=== PATIENT | female | born 1970 | race Caucasian/White ===

== ENCOUNTER 2023-05-28 17:40 | Inpatient (IN) | payer MEDICAID, OTHER ==
[~2023-05-28] VITALS: Ht 167.6 cm; Wt 106.0 kg
[2023-05-28 18:23] LABS: Urine Bacteria FEW /hpf (None Seen); Urine Blood Negative /uL (Negative); Urine Clarity Clear (Clear); Urine Color Yellow (Yellow); Urine Mucus FEW (None Seen); Urine Protein, UAD 1+ (Negative); Urine Specific Gravity 1.033 (1.001-1.035); Urine WBC 4 /hpf (0 - 5); Urine pH 5.5 (5.0-8.0)
[2023-05-28 18:42] LABS: Basophils # (auto) 0.1 10 ^3/uL (0-0.2); Basophils % (auto) 0.3 % (0.0-2.0); Eosinophils # (auto) 0.1 10 ^3/uL (0-0.8); Eosinophils % (auto) 0.3 % (0.0-7.0); Hematocrit 42.5 % (36.0-46.0); Hemoglobin 13.9 g/dL (12.2-16.2); Lymphocytes % (auto) 10.8 % (10.0-50.0); Mean Corpuscular Hemoglobin 27.4 pg (28.0-32.0); Mean Corpuscular Hgb Conc. 32.7 g/dL (32.0-36.0); Mean Corpuscular Volume 83.9 fL (80.0-100.0); Monocytes # (auto) 1.2 10 ^3/uL (0-1.3); Monocytes % (auto) 6.7 % (0.0-12.0); Neutrophils % (auto) 81.9 % (37.0-80.0); Red Blood Cells 5.06 10^6/uL (4.0-5.20); Red Cell Distribution Width 13.8 % (11.8-14.3); White Blood Cell 18.3 10^3/uL (4.4-10.8)
[2023-05-28 18:56] LABS: Amphetamine Screen, Urine Neg (NEGATIVE); Barbiturate Scree,Urine Neg (NEGATIVE); Benzodiazephine Screen, Urine Neg (NEGATIVE); Cannabinoid Screen, Urine Neg (NEGATIVE); Cocaine Screen, Urine Neg (NEGATIVE); Opiate Scree,Urine Neg (NEGATIVE); Phencyclidine Screen, Urine Neg (NEGATIVE)
[2023-05-28 18:58] LABS: Alanine Aminotransferase 17 U/L (7-40); Albumin 4.5 g/dL (3.2-4.8); Alkaline Phosphatase 163 U/L (46-116); Anion Gap 14 (5-15); Aspartate Aminotransferase < 8 U/L (13-40); BUN/Creatinine Ratio 11.5 (10.0-20.0); Bilirubin, Total 0.6 mg/dL (0.2-1.0); Blood Urea Nitrogen 11 mg/dL (9-23); Calcium 9.3 mg/dL (8.7-10.4); Carbon Dioxide 18 mmol/L (20-30); Chloride 97 mmol/L (98-107); Glucose 320 mg/dL (74-106); Sodium 129 mmol/L (136-145)
[2023-05-28 18:59] LABS: Total Protein 7.6 g/dL (5.7-8.2)
[2023-05-28 19:03] LABS: INR 1.04 (0.9-1.15); Partial Thromboplastin Time 31.4 SEC (24.5-34.5); Prothrombin Time 10.9 sec (9.3-11.8)
[2023-05-28] MEDS ORDERED: ASPirin 325 MG TAB PO ONE (19:15)
[2023-05-28] MEDS ORDERED: ONDANSETRON ODT 4 MG TAB PO ONE (19:45)
[2023-05-28] MEDS ORDERED: traMADol HCL 50 MG TAB PO ONE (19:45)
[2023-05-28 19:57] VITALS: PULSE 123; RESP 20; O2SAT 96
[2023-05-28] MEDS ORDERED: SODIUM CHLORIDE 0.9% 1,000 ML IV ONE (20:00)
[2023-05-28] MEDS ORDERED: IOHEXOL 350 MG/ML 100ML IJ ONE (20:36)
[2023-05-28] MEDS ORDERED: PIPERACILLIN-TAZOB 3.375GM 100 ML IV ONE (20:45)
[2023-05-28 21:30] VITALS: PULSE 109; RESP 22; O2SAT 95
[2023-05-28] MEDS ORDERED: ONDANSETRON HCL 4 MG/2 ML VIAL IV PRN (21:30)
[2023-05-28] MEDS ORDERED: DOCUSATE SOD 100 MG CAP PO PRN (21:30)
[2023-05-28] MEDS ORDERED: DEXTROSE (50%) 50ML SYRG IV PRN (21:30)
[2023-05-28] MEDS ORDERED: NITROGLYCERIN 0.4 MG SL TAB SL PRN (22:45)
[2023-05-28] MEDS ORDERED: MORPHINE SULFATE INJ 2 MG/ml SYRG IV PRN (22:45)
[2023-05-28] MEDS: ACETAMINOPHEN 325 MG TAB PO PRN (23:12)
[2023-05-28] MEDS: FAMOTIDINE (10MG/ML) 2ML VL IV SCH (23:13)
[2023-05-28] MEDS: SODIUM CHLORIDE 0.9% 1,000 ML IV SCH (23:14)
[2023-05-28] MEDS: ACCU-CHEK COMFORT CURVE STRIP VI SCH (23:14)
[2023-05-28] MEDS: InsuLIN REG 1unit/0.01ml Soln (100units/ml) SC SCH (23:16)
[2023-05-28] MEDS: METOPROLOL TARTRATE 25 MG TAB PO SCH (23:17)
[2023-05-29] MEDS: diphenhdrAMINE HCL 50 MG/1 ML VL IV PRN (00:27)
[2023-05-29 05:25] LABS: Basophils # (auto) 0.1 10 ^3/uL (0-0.2); Basophils % (auto) 0.5 % (0.0-2.0); Eosinophils # (auto) 0.1 10 ^3/uL (0-0.8); Eosinophils % (auto) 0.6 % (0.0-7.0); Hematocrit 38.4 % (36.0-46.0); Hemoglobin 12.6 g/dL (12.2-16.2); Lymphocytes % (auto) 14.2 % (10.0-50.0); Mean Corpuscular Hemoglobin 27.4 pg (28.0-32.0); Mean Corpuscular Hgb Conc. 32.8 g/dL (32.0-36.0); Mean Corpuscular Volume 83.5 fL (80.0-100.0); Monocytes # (auto) 1.1 10 ^3/uL (0-1.3); Monocytes % (auto) 7.9 % (0.0-12.0); Neutrophils # (auto) 10.9 10 ^3/uL (1.6-8.6); Neutrophils % (auto) 76.8 % (37.0-80.0); Nucleated Red Blood Cells % 0.1 %; Red Cell Distribution Width 13.7 % (11.8-14.3); White Blood Cell 14.2 10^3/uL (4.4-10.8)
[2023-05-29 05:44] LABS: Alanine Aminotransferase 12 U/L (7-40); Albumin 4.2 g/dL (3.2-4.8); Alkaline Phosphatase 141 U/L (46-116); Anion Gap 11 (5-15); Aspartate Aminotransferase < 8 U/L (13-40); BUN/Creatinine Ratio 10.8 (10.0-20.0); Blood Urea Nitrogen 9 mg/dL (9-23); Calcium 9.2 mg/dL (8.7-10.4); Carbon Dioxide 19 mmol/L (20-30); Chloride 102 mmol/L (98-107); Glucose 239 mg/dL (74-106); Potassium 3.9 mmol/L (3.5-5.1); Sodium 132 mmol/L (136-145)
[2023-05-29 05:45] LABS: Bilirubin, Total 0.5 mg/dL (0.2-1.0); Total Protein 7.4 g/dL (5.7-8.2)
[2023-05-29] MEDS: PIPERACILLIN-TAZOB 3.375GM 100 ML IV SCH ×3 (06:17→21:51)
[2023-05-29] MEDS: ACCU-CHEK COMFORT CURVE STRIP VI SCH ×4 (06:27→21:51)
[2023-05-29] MEDS: InsuLIN REG 1unit/0.01ml Soln (100units/ml) SC SCH ×4 (06:31→22:03)
[2023-05-29 08:09] LABS: COVID19 ANTIGEN SOFIA FIA NEGATIVE (NEGATIVE)
[2023-05-29 09:00] VITALS: BP_SYST 151; BP_SYST 180; BP_DIAS 59; BP_DIAS 72; PULSE 70; PULSE 94; RESP 16; TEMP 97.9; TEMP 98.6; O2SAT 97; O2SAT 99
[2023-05-29] MEDS: ASPirin 81 mg TAB PO SCH (09:04)
[2023-05-29] MEDS: FAMOTIDINE (10MG/ML) 2ML VL IV SCH ×2 (09:04→21:51)
[2023-05-29] MEDS: traMADol HCL 50 MG TAB PO PRN ×2 (09:05→15:58)
[2023-05-29] MEDS: METOPROLOL TARTRATE 25 MG TAB PO SCH ×2 (09:06→22:00)
[2023-05-29] MEDS ORDERED: GLIP10TA9 PO (09:10)
[2023-05-29] MEDS ORDERED: ALPR0.254 PO (09:12)
[2023-05-29] MEDS ORDERED: METO25TA5 PO (09:12)
[2023-05-29] MEDS ORDERED: ESCI10TA PO (09:12)
[2023-05-29 12:42] VITALS: BP 151/72; PULSE 94; TEMP 37
[2023-05-29 13:00] VITALS: BP 119/56; PULSE 93; RESP 20; TEMP 98.7; O2SAT 95
[2023-05-29] MEDS: SODIUM CHLORIDE 0.9% 1,000 ML IV SCH (13:54)
[2023-05-29] MEDS ORDERED: MORPHINE SULFATE INJ 2 MG/ml SYRG IV PRN (16:15)
[2023-05-29 17:00] VITALS: BP 144/77; PULSE 104; RESP 19; TEMP 98.4; O2SAT 95
[2023-05-29 20:00] VITALS: BP 155/87; PULSE 117; PULSE 119; RESP 18; TEMP 98.4; O2SAT 99
[2023-05-29 22:00] VITALS: BP 155/87; PULSE 119; RESP 18; TEMP 98.4; O2SAT 98
[2023-05-30] VITALS (8 sets, daily range): BP systolic 125–142; BP diastolic 61–86; PULSE 95–127; RESP 14–21; TEMP 97.5–98.9; O2SAT 94–98
[2023-05-30] MEDS: PIPERACILLIN-TAZOB 3.375GM 100 ML IV SCH ×3 (05:43→23:10)
[2023-05-30] MEDS: SODIUM CHLORIDE 0.9% 1,000 ML IV SCH ×2 (05:45→23:27)
[2023-05-30] MEDS: ACCU-CHEK COMFORT CURVE STRIP VI SCH ×4 (05:45→23:10)
[2023-05-30] MEDS: ACETAMINOPHEN 325 MG TAB PO PRN (05:54)
[2023-05-30] MEDS: InsuLIN REG 1unit/0.01ml Soln (100units/ml) SC SCH ×4 (05:59→23:14)
[2023-05-30] MEDS: ASPirin 81 mg TAB PO SCH (09:32)
[2023-05-30] MEDS: FAMOTIDINE (10MG/ML) 2ML VL IV SCH ×2 (09:33→23:04)
[2023-05-30] MEDS: METOPROLOL TARTRATE 25 MG TAB PO SCH ×2 (09:33→23:07)
[2023-05-30] MEDS: traMADol HCL 50 MG TAB PO PRN ×2 (16:05→20:56)
[2023-05-30] MEDS: diphenhdrAMINE HCL 50 MG/1 ML VL IV PRN (23:13)
[2023-05-31] VITALS (8 sets, daily range): BP systolic 101–140; BP diastolic 58–69; PULSE 60–112; RESP 14–21; TEMP 98.3–100.1; O2SAT 93–96
[2023-05-31] MEDS: PIPERACILLIN-TAZOB 3.375GM 100 ML IV SCH (05:26)
[2023-05-31] MEDS: traMADol HCL 50 MG TAB PO PRN (05:30)
[2023-05-31] MEDS: ACCU-CHEK COMFORT CURVE STRIP VI SCH ×4 (06:24→22:33)
[2023-05-31] MEDS: ACETAMINOPHEN 325 MG TAB PO PRN (06:47)
[2023-05-31] MEDS: InsuLIN REG 1unit/0.01ml Soln (100units/ml) SC SCH ×4 (06:47→22:58)
[2023-05-31] MEDS: FAMOTIDINE (10MG/ML) 2ML VL IV SCH (10:30)
[2023-05-31] MEDS: ASPirin 81 mg TAB PO SCH (10:30)
[2023-05-31] MEDS: METOPROLOL TARTRATE 25 MG TAB PO SCH ×2 (10:30→22:33)
[2023-05-31 11:20] LABS: Basophils # (auto) 0.1 10 ^3/uL (0-0.2); Basophils % (auto) 0.7 % (0.0-2.0); Eosinophils # (auto) 0.1 10 ^3/uL (0-0.8); Hematocrit 35.7 % (36.0-46.0); Hemoglobin 11.9 g/dL (12.2-16.2); Lymphocytes # (auto) 1.6 10 ^3/uL (0.4-5.4); Lymphocytes % (auto) 10.8 % (10.0-50.0); Mean Corpuscular Hemoglobin 27.5 pg (28.0-32.0); Mean Corpuscular Hgb Conc. 33.3 g/dL (32.0-36.0); Mean Corpuscular Volume 82.5 fL (80.0-100.0); Monocytes # (auto) 1.2 10 ^3/uL (0-1.3); Monocytes % (auto) 8.3 % (0.0-12.0); Neutrophils # (auto) 11.5 10 ^3/uL (1.6-8.6); Neutrophils % (auto) 79.2 % (37.0-80.0); Red Blood Cells 4.32 10^6/uL (4.0-5.20); Red Cell Distribution Width 13.2 % (11.8-14.3); White Blood Cell 14.5 10^3/uL (4.4-10.8)
[2023-05-31 11:43] LABS: Alanine Aminotransferase 13 U/L (7-40); Albumin 3.8 g/dL (3.2-4.8); Alkaline Phosphatase 141 U/L (46-116); Anion Gap 7 (5-15); Aspartate Aminotransferase 10 U/L (13-40); Blood Urea Nitrogen 6 mg/dL (9-23); Calcium 8.9 mg/dL (8.7-10.4); Carbon Dioxide 24 mmol/L (20-30); Chloride 99 mmol/L (98-107); Glucose 304 mg/dL (74-106); Potassium 3.3 mmol/L (3.5-5.1); Sodium 130 mmol/L (136-145)
[2023-05-31 11:44] LABS: Bilirubin, Total 0.4 mg/dL (0.2-1.0); Total Protein 6.9 g/dL (5.7-8.2)
[2023-05-31 11:53] LABS: Erythrocyte Sedimentation Rate 86 mm/hr (0-20)
[2023-05-31 12:51] LABS: CRP High Sensitivity > 20.00 mg/dL (<1.0)
[2023-05-31] MEDS ORDERED: POTASSIUM CHL 20 Meq TABLET PO ONE (14:00)
[2023-05-31] MEDS ORDERED: ENOXAPARIN SOD 40 MG/0.4 ML SYRINGE SC ONE (14:00)
[2023-05-31] MEDS ORDERED: DOXYCYCLINE 100 MG TAB/CAP PO ONE (14:00)
[2023-05-31] MEDS ORDERED: VANCOMYCIN PER PHARMACY 0 MG IV SCH (14:15)
[2023-05-31] MEDS ORDERED: VANCOMYCIN 1GM/200ML 250 ML IV SCH (16:00)
[2023-05-31] MEDS: HYDROcodone-ACET 10/325MG TAB PO PRN ×2 (16:20→22:30)
[2023-05-31] MEDS: VANCOMYCIN 1GM/200ML 250 ML IV SCH (16:22)
[2023-05-31] MEDS: NYSTATIN TOPICAL POWDER 15GM TOP SCH (22:00)
[2023-05-31] MEDS ORDERED: INSULIN LANTUS (GLARGINE) 1 /0.01ml (100units/ml) SC SCH (22:00)
[2023-05-31] MEDS: DOXYCYCLINE 100 MG TAB/CAP PO SCH (22:30)
[2023-05-31] MEDS: CEFEPIME 2GM/50ML NS 50 ML IV SCH (22:32)
[2023-06-01] VITALS (9 sets, daily range): BP systolic 109–138; BP diastolic 61–75; PULSE 83–102; RESP 14–19; TEMP 97.7–98.6; O2SAT 92–100
[2023-06-01] MEDS: VANCOMYCIN 1GM/200ML 250 ML IV SCH ×2 (03:28→17:54)
[2023-06-01] MEDS: CEFEPIME 2GM/50ML NS 50 ML IV SCH (06:54)
[2023-06-01] MEDS: ACCU-CHEK COMFORT CURVE STRIP VI SCH ×4 (06:54→22:00)
[2023-06-01] MEDS: InsuLIN REG 1unit/0.01ml Soln (100units/ml) SC SCH ×4 (06:55→22:00)
[2023-06-01 07:23] LABS: Alanine Aminotransferase 11 U/L (7-40); Albumin 3.6 g/dL (3.2-4.8); Alkaline Phosphatase 131 U/L (46-116); Anion Gap 7 (5-15); Aspartate Aminotransferase 11 U/L (13-40); BUN/Creatinine Ratio 8.2 (10.0-20.0); Blood Urea Nitrogen 6 mg/dL (9-23); Carbon Dioxide 26 mmol/L (20-30); Chloride 99 mmol/L (98-107); Glucose 296 mg/dL (74-106); Magnesium 1.8 mg/dL (1.6-2.6); Potassium 3.8 mmol/L (3.5-5.1); Sodium 132 mmol/L (136-145)
[2023-06-01 07:24] LABS: Bilirubin, Total 0.2 mg/dL (0.2-1.0); Total Protein 6.5 g/dL (5.7-8.2)
[2023-06-01 07:53] LABS: CRP High Sensitivity > 20.00 mg/dL (<1.0)
[2023-06-01] MEDS ORDERED: CLINDAMYCIN 600MG IV 50 ML IV ONE (08:30)
[2023-06-01] MEDS ORDERED: DEXTROSE (50%) 50ML SYRG IV PRN (08:30)
[2023-06-01 08:34] LABS: Erythrocyte Sedimentation Rate 86 mm/hr (0-20)
[2023-06-01 09:14] LABS: Basophils # (auto) 0.1 10 ^3/uL (0-0.2); Basophils % (auto) 0.5 % (0.0-2.0); Eosinophils # (auto) 0.2 10 ^3/uL (0-0.8); Eosinophils % (auto) 2.2 % (0.0-7.0); Hematocrit 34.6 % (36.0-46.0); Hemoglobin 11.4 g/dL (12.2-16.2); Lymphocytes # (auto) 1.7 10 ^3/uL (0.4-5.4); Lymphocytes % (auto) 15.3 % (10.0-50.0); Mean Corpuscular Hemoglobin 27.2 pg (28.0-32.0); Mean Corpuscular Hgb Conc. 32.9 g/dL (32.0-36.0); Mean Corpuscular Volume 82.6 fL (80.0-100.0); Monocytes % (auto) 8.5 % (0.0-12.0); Neutrophils # (auto) 8.2 10 ^3/uL (1.6-8.6); Neutrophils % (auto) 73.5 % (37.0-80.0); Red Blood Cells 4.19 10^6/uL (4.0-5.20); Red Cell Distribution Width 13.5 % (11.8-14.3); White Blood Cell 11.2 10^3/uL (4.4-10.8)
[2023-06-01] MEDS: NYSTATIN TOPICAL POWDER 15GM TOP SCH ×2 (10:00→22:00)
[2023-06-01] MEDS ORDERED: ENOXAPARIN SOD 40 MG/0.4 ML SYRINGE SC SCH (10:00)
[2023-06-01] MEDS: METOPROLOL TARTRATE 25 MG TAB PO SCH (10:59)
[2023-06-01] MEDS: DOXYCYCLINE 100 MG TAB/CAP PO SCH (10:59)
[2023-06-01] MEDS ORDERED: ALPRAZolam 0.25 MG TAB PO PRN (11:00)
[2023-06-01] MEDS: CITALOPRAM HYDROBR 20 MG TAB PO SCH (11:15)
[2023-06-01] MEDS: HYDROcodone-ACET 5/325MG TAB PO PRN (11:15)
[2023-06-01] MEDS ORDERED: CLINDAMYCIN 600MG IV 50 ML IV SCH ×2 (14:00→19:00)
[2023-06-01] MEDS ORDERED: MEROPENEM 1GM IVPB 100 ML IV SCH (14:00)
[2023-06-01] MEDS: ACETAMINOPHEN 325 MG TAB PO PRN (16:26)
[2023-06-01] MEDS ORDERED: MIDAZOLAM HCL 2MG/2ML 2ml VIAL (1mg/ml) ONE (20:59)
[2023-06-01] MEDS ORDERED: fentaNYL CITRATE 100 MCG/2 ML VL ONE (20:59)
[2023-06-01] MEDS ORDERED: PROPOFOL 10 MG/ML 20 ML IV ONE (21:27)
[2023-06-01] MEDS ORDERED: ONDANSETRON HCL 4 MG/2 ML VIAL IV PRN (21:45)
[2023-06-01] MEDS ORDERED: HYDROmorphone HCL 2 MG/ML VL/or syr IV PRN (21:45)
[2023-06-01] MEDS ORDERED: PREGABALIN 25 MG CAP PO SCH ×2 (22:00)
[2023-06-01] MEDS: INSULIN LANTUS (GLARGINE) 1 /0.01ml (100units/ml) SC SCH (22:00)
[2023-06-02] MEDS: METOPROLOL TARTRATE 25 MG TAB PO SCH ×2 (00:48→09:58)
[2023-06-02] MEDS: HYDROcodone-ACET 5/325MG TAB PO PRN (00:48)
[2023-06-02] MEDS: PREGABALIN 25 MG CAP PO SCH (00:48)
[2023-06-02 05:00] VITALS: BP 99/50; PULSE 81; RESP 16; TEMP 98.2; O2SAT 93
[2023-06-02 05:49] LABS: Basophils # (auto) 0.1 10 ^3/uL (0-0.2); Basophils % (auto) 0.7 % (0.0-2.0); Eosinophils # (auto) 0.2 10 ^3/uL (0-0.8); Eosinophils % (auto) 2.6 % (0.0-7.0); Hematocrit 32.8 % (36.0-46.0); Lymphocytes # (auto) 1.7 10 ^3/uL (0.4-5.4); Lymphocytes % (auto) 20.4 % (10.0-50.0); Mean Corpuscular Volume 82.9 fL (80.0-100.0); Monocytes # (auto) 0.6 10 ^3/uL (0-1.3); Monocytes % (auto) 7.1 % (0.0-12.0); Neutrophils # (auto) 5.6 10 ^3/uL (1.6-8.6); Neutrophils % (auto) 69.2 % (37.0-80.0); Nucleated Red Blood Cells % 0.1 %; Red Blood Cells 3.95 10^6/uL (4.0-5.20); White Blood Cell 8.1 10^3/uL (4.4-10.8)
[2023-06-02 05:50] LABS: Mean Corpuscular Hemoglobin 27.8 pg (28.0-32.0); Mean Corpuscular Hgb Conc. 33.5 g/dL (32.0-36.0); Red Cell Distribution Width 13.4 % (11.8-14.3)
[2023-06-02 05:52] LABS: Chloride 101 mmol/L (98-107); Potassium 3.5 mmol/L (3.5-5.1); Sodium 136 mmol/L (136-145)
[2023-06-02 05:53] LABS: Anion Gap 8 (5-15); Carbon Dioxide 27 mmol/L (20-30)
[2023-06-02 05:54] LABS: Calcium 8.7 mg/dL (8.5-10.1)
[2023-06-02 05:58] LABS: BUN/Creatinine Ratio 11.3 (10.0-20.0); Blood Urea Nitrogen 7 mg/dL (9-23); Glucose 318 mg/dL (74-106)
[2023-06-02 06:09] LABS: CRP High Sensitivity 14.33 mg/dL (<1.0)
[2023-06-02 06:17] LABS: Magnesium 1.7 mg/dL (1.6-2.6)
[2023-06-02 06:23] LABS: Erythrocyte Sedimentation Rate 90 mm/hr (0-20)
[2023-06-02] MEDS: ACCU-CHEK COMFORT CURVE STRIP VI SCH ×3 (06:38→17:11)
[2023-06-02] MEDS: InsuLIN REG 1unit/0.01ml Soln (100units/ml) SC SCH ×3 (07:31→17:10)
[2023-06-02] MEDS: VANCOMYCIN 1GM/200ML 250 ML IV SCH ×2 (07:31→16:29)
[2023-06-02 09:00] VITALS: BP 124/68; PULSE 68; RESP 17; TEMP 97.8; O2SAT 98
[2023-06-02] MEDS: CITALOPRAM HYDROBR 20 MG TAB PO SCH (09:58)
[2023-06-02] MEDS: NYSTATIN TOPICAL POWDER 15GM TOP SCH ×2 (09:59→22:00)
[2023-06-02] MEDS ORDERED: CEFTRIAXONE SODIUM 2 GM in D5W 5% 100 ML IV SCH (10:00)
[2023-06-02] MEDS ORDERED: PATIENTS OWN MEDICATION PO SCH (10:00)
[2023-06-02] MEDS ORDERED: FLUCONAZOLE 200MG/100ML 100 ML IV ONE (10:45)
[2023-06-02 13:00] VITALS: BP 124/70; PULSE 63; RESP 17; TEMP 98.4; O2SAT 92
[2023-06-02 17:00] VITALS: BP 140/73; PULSE 79; RESP 20; TEMP 98.3; O2SAT 95
[2023-06-02 20:00] VITALS: PULSE 86; RESP 18; O2SAT 97
[2023-06-02 22:00] VITALS: BP 136/71; PULSE 86; RESP 18; TEMP 98; O2SAT 97
[2023-06-03] VITALS (7 sets, daily range): BP systolic 103–127; BP diastolic 54–70; PULSE 74–87; RESP 18; TEMP 97.7–99; O2SAT 91–95
[2023-06-03] MEDS: ACCU-CHEK COMFORT CURVE STRIP VI SCH ×5 (01:21→22:56)
[2023-06-03] MEDS: InsuLIN REG 1unit/0.01ml Soln (100units/ml) SC SCH ×5 (01:22→23:24)
[2023-06-03] MEDS: VANCOMYCIN 1GM/200ML 250 ML IV SCH ×3 (01:23→19:23)
[2023-06-03] MEDS: PREGABALIN 25 MG CAP PO SCH ×2 (01:23→22:56)
[2023-06-03] MEDS: INSULIN LANTUS (GLARGINE) 1 /0.01ml (100units/ml) SC SCH ×2 (01:23→23:24)
[2023-06-03] MEDS: HYDROcodone-ACET 5/325MG TAB PO PRN (01:24)
[2023-06-03] MEDS: METOPROLOL TARTRATE 25 MG TAB PO SCH ×3 (01:24→22:56)
[2023-06-03] MEDS: CLINDAMYCIN HCL 150 MG CAP PO SCH ×5 (02:18→22:55)
[2023-06-03 06:09] LABS: Hematocrit 32.6 % (36.0-46.0); Hemoglobin 10.8 g/dL (12.2-16.2); Mean Corpuscular Hemoglobin 27.6 pg (28.0-32.0); Mean Corpuscular Volume 83.5 fL (80.0-100.0); Red Cell Distribution Width 13.5 % (11.8-14.3); White Blood Cell 6.2 10^3/uL (4.4-10.8)
[2023-06-03 06:10] LABS: Alanine Aminotransferase 10 U/L (7-40); Albumin 3.5 g/dL (3.2-4.8); Alkaline Phosphatase 100 U/L (46-116); Anion Gap 6 (5-15); Aspartate Aminotransferase 11 U/L (13-40); Calcium 8.9 mg/dL (8.5-10.1); Carbon Dioxide 29 mmol/L (20-30); Chloride 102 mmol/L (98-107); Cholesterol 150 mg/dL (< 200); Glucose 201 mg/dL (74-106); HDL Cholesterol 24 mg/dL (40-59); LDL Cholesterol 104 mg/dL (< 100); Potassium 3.2 mmol/L (3.5-5.1); Sodium 137 mmol/L (136-145); Triglycerides 134 mg/dL (< 150)
[2023-06-03 06:11] LABS: Bilirubin, Total 0.2 mg/dL (0.2-1.0); Total Protein 6.5 g/dL (5.7-8.2)
[2023-06-03 06:14] LABS: Basophils % (manual) 0 (0.0-2.0); Blast Cells 0; Myelocytes % 0; Promyelocytes % 0; Reactive Lymphocytes 0
[2023-06-03 06:19] LABS: BUN/Creatinine Ratio 8.9 (10.0-20.0); Blood Urea Nitrogen < 5 mg/dL (9-23); CRP High Sensitivity 9.77 mg/dL (<1.0)
[2023-06-03 06:54] LABS: Erythrocyte Sedimentation Rate 92 mm/hr (0-20)
[2023-06-03] MEDS ORDERED: POTASSIUM CHL 10 Meq TABLET PO ONE (07:00)
[2023-06-03] MEDS ORDERED: ERGOCALCIFEROL 50,000 UNIT(1.25MG) CAP PO SCH (07:00)
[2023-06-03 07:12] LABS: Band Neutrophils % (manual) 6; Eosinophils % (manual) 2 (0-7); Lymphocytes % (manual) 21 (10.0-50.0); Metamyelocytes % 2; Monocytes % (manual) 7 (0-12); Platelet Estimate Adequate
[2023-06-03] MEDS: LEVOTHYROXINE SODIUM 25 MCG TAB PO SCH (08:58)
[2023-06-03] MEDS: CITALOPRAM HYDROBR 20 MG TAB PO SCH (08:58)
[2023-06-03 09:15] LABS: Free T3 2.27 pg/mL (2.3-4.2); Free T4 (Free Thyroxine) 1.13 ng/dL (0.89-1.76)
[2023-06-03] MEDS: NYSTATIN TOPICAL POWDER 15GM TOP SCH ×3 (10:00→22:00)
[2023-06-03] MEDS ORDERED: FLUCONAZOLE 200MG/100ML 100 ML IV SCH (10:00)
[2023-06-03] MEDS: FLUCONAZOLE 200MG/100ML 100 ML IV SCH (10:00)
[2023-06-03] MEDS: HYDROcodone-ACET 10/325MG TAB PO PRN ×2 (16:30→22:55)
[2023-06-03] MEDS ORDERED: FAMOTIDINE (10MG/ML) 2ML VL IV ONE (22:30)
[2023-06-04] VITALS (7 sets, daily range): BP systolic 112–148; BP diastolic 60–76; PULSE 69–78; RESP 14–18; TEMP 36.5; O2SAT 93–96
[2023-06-04] MEDS: VANCOMYCIN 1GM/200ML 250 ML IV SCH ×3 (02:09→18:00)
[2023-06-04 05:48] LABS: Hematocrit 31.6 % (36.0-46.0); Hemoglobin 10.6 g/dL (12.2-16.2); Mean Corpuscular Hemoglobin 27.5 pg (28.0-32.0); Mean Corpuscular Hgb Conc. 33.4 g/dL (32.0-36.0); Mean Corpuscular Volume 82.3 fL (80.0-100.0); Red Blood Cells 3.85 10^6/uL (4.0-5.20); Red Cell Distribution Width 13.9 % (11.8-14.3); White Blood Cell 5.2 10^3/uL (4.4-10.8)
[2023-06-04 05:59] LABS: Band Neutrophils % (manual) 0; Basophils % (manual) 0 (0.0-2.0); Blast Cells 0; Metamyelocytes % 0; Promyelocytes % 0; Reactive Lymphocytes 0
[2023-06-04 06:01] LABS: Alanine Aminotransferase 17 U/L (7-40); Albumin 3.4 g/dL (3.2-4.8); Alkaline Phosphatase 89 U/L (46-116); Calcium 8.7 mg/dL (8.5-10.1); Chloride 102 mmol/L (98-107)
[2023-06-04 06:02] LABS: Anion Gap 6 (5-15); Aspartate Aminotransferase 24 U/L (13-40); Bilirubin, Total 0.2 mg/dL (0.2-1.0); Blood Urea Nitrogen 6 mg/dL (9-23); Carbon Dioxide 29 mmol/L (20-30); Glucose 227 mg/dL (74-106); Potassium 3.2 mmol/L (3.5-5.1); Sodium 137 mmol/L (136-145); Total Protein 6.2 g/dL (5.7-8.2)
[2023-06-04 06:10] LABS: CRP High Sensitivity 6.47 mg/dL (<1.0)
[2023-06-04 06:49] LABS: Erythrocyte Sedimentation Rate 80 mm/hr (0-20)
[2023-06-04] MEDS: CLINDAMYCIN HCL 150 MG CAP PO SCH ×3 (07:23→18:31)
[2023-06-04] MEDS: ACCU-CHEK COMFORT CURVE STRIP VI SCH ×3 (07:23→17:00)
[2023-06-04] MEDS: LEVOTHYROXINE SODIUM 25 MCG TAB PO SCH (07:23)
[2023-06-04] MEDS: InsuLIN REG 1unit/0.01ml Soln (100units/ml) SC SCH ×4 (07:25→18:31)
[2023-06-04 08:44] LABS: Eosinophils % (manual) 5 (0-7); Lymphocytes % (manual) 33 (10.0-50.0); Monocytes % (manual) 5 (0-12); Myelocytes % 1; Platelet Estimate Adequate
[2023-06-04] MEDS: NYSTATIN TOPICAL POWDER 15GM TOP SCH ×3 (10:00→22:00)
[2023-06-04 10:07] LABS: Thyrotropin Receptor Antibody <1.10 IU/L (0.00-1.75)
[2023-06-04] MEDS: FAMOTIDINE (10MG/ML) 2ML VL IV SCH (11:01)
[2023-06-04] MEDS: FLUCONAZOLE 200MG/100ML 100 ML IV SCH (11:02)
[2023-06-04] MEDS: CITALOPRAM HYDROBR 20 MG TAB PO SCH (11:02)
[2023-06-04] MEDS: METOPROLOL TARTRATE 25 MG TAB PO SCH (11:04)
[2023-06-04] MEDS: INSULIN LANTUS (GLARGINE) 1 /0.01ml (100units/ml) SC SCH (11:59)
[2023-06-04 13:07] LABS: Thyroglobulin Antibody <1.0 IU/mL (0.0-0.9)
[2023-06-04] MEDS: ACETAMINOPHEN 325 MG TAB PO PRN (13:07)
[2023-06-04] MEDS: HYDROcodone-ACET 10/325MG TAB PO PRN (16:36)
[2023-06-05] VITALS (7 sets, daily range): BP systolic 106–136; BP diastolic 58–76; PULSE 60–78; RESP 14–22; TEMP 97.7–98.4; O2SAT 94–95
[2023-06-05] MEDS: CLINDAMYCIN HCL 150 MG CAP PO SCH ×5 (00:17→23:32)
[2023-06-05] MEDS: PREGABALIN 25 MG CAP PO SCH ×2 (00:17→22:08)
[2023-06-05] MEDS: ACCU-CHEK COMFORT CURVE STRIP VI SCH ×5 (00:18→22:00)
[2023-06-05] MEDS: FAMOTIDINE (10MG/ML) 2ML VL IV SCH ×3 (00:18→22:08)
[2023-06-05] MEDS: METOPROLOL TARTRATE 25 MG TAB PO SCH ×3 (00:18→22:09)
[2023-06-05] MEDS: HYDROcodone-ACET 10/325MG TAB PO PRN ×3 (00:40→22:14)
[2023-06-05] MEDS: InsuLIN REG 1unit/0.01ml Soln (100units/ml) SC SCH ×5 (00:46→22:15)
[2023-06-05] MEDS: INSULIN LANTUS (GLARGINE) 1 /0.01ml (100units/ml) SC SCH ×3 (00:47→22:16)
[2023-06-05] MEDS: NYSTATIN TOPICAL POWDER 15GM TOP SCH ×5 (00:47→22:10)
[2023-06-05] MEDS: VANCOMYCIN 1GM/200ML 250 ML IV SCH ×3 (02:37→18:30)
[2023-06-05 05:46] LABS: Hematocrit 32.2 % (36.0-46.0); Hemoglobin 10.5 g/dL (12.2-16.2); Mean Corpuscular Hemoglobin 27.2 pg (28.0-32.0); Mean Corpuscular Hgb Conc. 32.6 g/dL (32.0-36.0); Mean Corpuscular Volume 83.6 fL (80.0-100.0); Red Blood Cells 3.85 10^6/uL (4.0-5.20); Red Cell Distribution Width 13.6 % (11.8-14.3); White Blood Cell 6.5 10^3/uL (4.4-10.8)
[2023-06-05 06:04] LABS: Basophils % (manual) 0 (0.0-2.0); Blast Cells 0; Metamyelocytes % 0; Promyelocytes % 0; Reactive Lymphocytes 0
[2023-06-05 06:09] LABS: Alanine Aminotransferase 26 U/L (7-40); Albumin 3.4 g/dL (3.2-4.8); Alkaline Phosphatase 86 U/L (46-116); Anion Gap 6 (5-15); Aspartate Aminotransferase 36 U/L (13-40); Calcium 8.6 mg/dL (8.5-10.1); Carbon Dioxide 29 mmol/L (20-30); Chloride 102 mmol/L (98-107); Glucose 207 mg/dL (74-106); Potassium 3.5 mmol/L (3.5-5.1); Sodium 137 mmol/L (136-145)
[2023-06-05 06:10] LABS: Bilirubin, Total 0.2 mg/dL (0.2-1.0); Total Protein 6.3 g/dL (5.7-8.2)
[2023-06-05 06:18] LABS: CRP High Sensitivity 4.41 mg/dL (<1.0)
[2023-06-05 06:28] LABS: Blood Urea Nitrogen < 5 mg/dL (9-23)
[2023-06-05] MEDS: LEVOTHYROXINE SODIUM 25 MCG TAB PO SCH (06:42)
[2023-06-05 07:30] LABS: Erythrocyte Sedimentation Rate 70 mm/hr (0-20)
[2023-06-05 08:08] LABS: Band Neutrophils % (manual) 6; Eosinophils % (manual) 7 (0-7); Lymphocytes % (manual) 34 (10.0-50.0); Monocytes % (manual) 12 (0-12); Myelocytes % 1; Platelet Estimate Adequate
[2023-06-05] MEDS: CITALOPRAM HYDROBR 20 MG TAB PO SCH (08:43)
[2023-06-05] MEDS: FLUCONAZOLE 200MG/100ML 100 ML IV SCH (10:50)
[2023-06-06] MEDS: VANCOMYCIN 1GM/200ML 250 ML IV SCH ×3 (02:16→17:02)
[2023-06-06 05:02] VITALS: BP 112/63; PULSE 66; RESP 14; TEMP 97.7; O2SAT 92
[2023-06-06 06:28] LABS: Basophils # (auto) 0 10 ^3/uL (0-0.2); Basophils % (auto) 0.7 % (0.0-2.0); Eosinophils # (auto) 0.3 10 ^3/uL (0-0.8); Eosinophils % (auto) 4.7 % (0.0-7.0); Hematocrit 31.9 % (36.0-46.0); Hemoglobin 10.5 g/dL (12.2-16.2); Lymphocytes # (auto) 1.9 10 ^3/uL (0.4-5.4); Lymphocytes % (auto) 30.3 % (10.0-50.0); Mean Corpuscular Hemoglobin 27.4 pg (28.0-32.0); Mean Corpuscular Hgb Conc. 32.8 g/dL (32.0-36.0); Mean Corpuscular Volume 83.5 fL (80.0-100.0); Monocytes # (auto) 0.7 10 ^3/uL (0-1.3); Monocytes % (auto) 11.5 % (0.0-12.0); Neutrophils # (auto) 3.3 10 ^3/uL (1.6-8.6); Neutrophils % (auto) 52.8 % (37.0-80.0); Nucleated Red Blood Cells % 0.1 %; Red Blood Cells 3.83 10^6/uL (4.0-5.20); Red Cell Distribution Width 13.5 % (11.8-14.3); White Blood Cell 6.3 10^3/uL (4.4-10.8)
[2023-06-06] MEDS: CLINDAMYCIN HCL 150 MG CAP PO SCH ×4 (06:39→22:54)
[2023-06-06] MEDS: LEVOTHYROXINE SODIUM 25 MCG TAB PO SCH (06:40)
[2023-06-06] MEDS: ACCU-CHEK COMFORT CURVE STRIP VI SCH ×4 (06:40→22:28)
[2023-06-06 06:41] LABS: Alanine Aminotransferase 23 U/L (7-40); Alkaline Phosphatase 97 U/L (46-116); Anion Gap 5 (5-15); BUN/Creatinine Ratio 8.4 (10.0-20.0); Blood Urea Nitrogen 7 mg/dL (9-23); Calcium 8.9 mg/dL (8.7-10.4); Carbon Dioxide 31 mmol/L (20-30); Chloride 103 mmol/L (98-107); Glucose 132 mg/dL (74-106); Sodium 139 mmol/L (136-145)
[2023-06-06 06:42] LABS: Albumin 3.5 g/dL (3.2-4.8); Aspartate Aminotransferase 20 U/L (13-40); Bilirubin, Total 0.2 mg/dL (0.2-1.0); Total Protein 6.4 g/dL (5.7-8.2)
[2023-06-06] MEDS: InsuLIN REG 1unit/0.01ml Soln (100units/ml) SC SCH ×4 (06:44→22:24)
[2023-06-06 08:00] VITALS: PULSE 79; RESP 18
[2023-06-06 08:30] VITALS: BP 108/53; PULSE 79; RESP 18; TEMP 98.1; O2SAT 92
[2023-06-06] MEDS: FAMOTIDINE (10MG/ML) 2ML VL IV SCH ×2 (08:55→22:28)
[2023-06-06] MEDS: CITALOPRAM HYDROBR 20 MG TAB PO SCH (08:55)
[2023-06-06] MEDS: METOPROLOL TARTRATE 25 MG TAB PO SCH ×2 (08:56→22:26)
[2023-06-06] MEDS: NYSTATIN TOPICAL POWDER 15GM TOP SCH ×4 (10:00→22:36)
[2023-06-06 10:19] LABS: CRP High Sensitivity 3.44 mg/dL (<1.0)
[2023-06-06] MEDS: FLUCONAZOLE 200MG/100ML 100 ML IV SCH (10:59)
[2023-06-06] MEDS: INSULIN LANTUS (GLARGINE) 1 /0.01ml (100units/ml) SC SCH ×2 (11:12→22:24)
[2023-06-06 12:30] VITALS: BP 121/60; PULSE 60; RESP 20; TEMP 98; O2SAT 95
[2023-06-06 14:05] LABS: Erythrocyte Sedimentation Rate 64 mm/hr (0-20)
[2023-06-06 17:13] VITALS: BP 126/52; PULSE 62; RESP 18; TEMP 97.4; O2SAT 96
[2023-06-06] MEDS: HYDROcodone-ACET 5/325MG TAB PO PRN (20:44)
[2023-06-06 22:00] VITALS: BP 151/75; PULSE 68; RESP 17; TEMP 98.4; O2SAT 96
[2023-06-06] MEDS: PREGABALIN 25 MG CAP PO SCH (22:26)
[2023-06-07] MEDS: VANCOMYCIN 1GM/200ML 250 ML IV SCH ×2 (01:59→09:54)
[2023-06-07 05:00] VITALS: BP 127/62; PULSE 70; RESP 18; TEMP 97.9; O2SAT 96
[2023-06-07 05:50] LABS: Basophils # (auto) 0 10 ^3/uL (0-0.2); Basophils % (auto) 0.7 % (0.0-2.0); Eosinophils # (auto) 0.3 10 ^3/uL (0-0.8); Eosinophils % (auto) 3.9 % (0.0-7.0); Hemoglobin 10.6 g/dL (12.2-16.2); Lymphocytes # (auto) 1.9 10 ^3/uL (0.4-5.4); Mean Corpuscular Hemoglobin 27.1 pg (28.0-32.0); Mean Corpuscular Volume 84.6 fL (80.0-100.0); Monocytes # (auto) 0.7 10 ^3/uL (0-1.3); Monocytes % (auto) 9.9 % (0.0-12.0); Neutrophils # (auto) 3.9 10 ^3/uL (1.6-8.6); Neutrophils % (auto) 57.5 % (37.0-80.0); Nucleated Red Blood Cells % 0.1 %; Red Cell Distribution Width 14.3 % (11.8-14.3); White Blood Cell 6.8 10^3/uL (4.4-10.8)
[2023-06-07 05:56] LABS: Chloride 105 mmol/L (98-107); Potassium 3.5 mmol/L (3.5-5.1); Sodium 140 mmol/L (136-145)
[2023-06-07 05:57] LABS: Anion Gap 7 (5-15); Calcium 8.8 mg/dL (8.5-10.1); Carbon Dioxide 28 mmol/L (20-30)
[2023-06-07 06:02] LABS: Glucose 117 mg/dL (74-106)
[2023-06-07 06:06] LABS: BUN/Creatinine Ratio 6.7 (10.0-20.0); Blood Urea Nitrogen < 5 mg/dL (9-23)
[2023-06-07] MEDS: CLINDAMYCIN HCL 150 MG CAP PO SCH ×2 (06:25→11:19)
[2023-06-07] MEDS: LEVOTHYROXINE SODIUM 25 MCG TAB PO SCH (06:25)
[2023-06-07] MEDS: ACCU-CHEK COMFORT CURVE STRIP VI SCH ×3 (06:30→17:00)
[2023-06-07] MEDS: InsuLIN REG 1unit/0.01ml Soln (100units/ml) SC SCH ×3 (06:31→17:00)
[2023-06-07 08:00] VITALS: PULSE 80; RESP 20
[2023-06-07 08:30] VITALS: BP 124/76; PULSE 80; RESP 20; TEMP 97.7; O2SAT 94
[2023-06-07] MEDS: CITALOPRAM HYDROBR 20 MG TAB PO SCH (09:54)
[2023-06-07] MEDS: FAMOTIDINE (10MG/ML) 2ML VL IV SCH (09:54)
[2023-06-07] MEDS: METOPROLOL TARTRATE 25 MG TAB PO SCH (09:57)
[2023-06-07] MEDS: NYSTATIN TOPICAL POWDER 15GM TOP SCH ×2 (10:00→10:03)
[2023-06-07] MEDS ORDERED: PREG25CA PO (10:44)
[2023-06-07] MEDS ORDERED: METF-370 PO (10:46)
[2023-06-07] MEDS ORDERED: NYST150P2 XX (10:46)
[2023-06-07] MEDS ORDERED: AUG875T PO (10:46)
[2023-06-07] MEDS ORDERED: LEVO75TA6 PO (10:46)
[2023-06-07] MEDS ORDERED: DOXY1CAP57 PO (10:46)
[2023-06-07] MEDS ORDERED: CHOL1CAP47 PO (10:46)
[2023-06-07] MEDS: FLUCONAZOLE 200MG/100ML 100 ML IV SCH (11:09)
[2023-06-07] MEDS: INSULIN LANTUS (GLARGINE) 1 /0.01ml (100units/ml) SC SCH (11:11)
[2023-06-07 12:30] VITALS: BP 152/64; PULSE 64; RESP 20; TEMP 97.9; O2SAT 96
[2023-06-07] MEDS ORDERED: HYDR-4902 PO (13:29)
[2023-06-07 16:12] VITALS: BP 152/64; PULSE 64; RESP 20; TEMP 97.9; O2SAT 96
== END 2023-06-07 17:15 | disposition home or self-care (01) | DRG 364 ==
LOC: ER 17:40 → TELE 22:34 → TELE-EAST 05-29 07:54 → EAST 05-31 02:41
PROVIDERS: ADMIT Internal Medicine Geriatric Medicine; ATTEND Internal Medicine Geriatric Medicine
PROC: 0KBR0ZZ Excision of Left Upper Leg Muscle, Open Approach (ICD-10-PCS; principal; 2023-06-01 20:58)
DX: L02.416 Cutaneous abscess of left lower limb (principal); R65.10 Systemic inflammatory response syndrome (SIRS) of non-infectious origin without acute organ dysfunction; E11.42 Type 2 diabetes mellitus with diabetic polyneuropathy; E87.1 Hypo-osmolality and hyponatremia; B35.6 Tinea cruris; E03.9 Hypothyroidism, unspecified; N39.0 Urinary tract infection, site not specified; L03.116 Cellulitis of left lower limb; E66.9 Obesity, unspecified; E11.65 Type 2 diabetes mellitus with hyperglycemia; F41.9 Anxiety disorder, unspecified; I10 Essential (primary) hypertension; E87.6 Hypokalemia; S70.362A Insect bite (nonvenomous), left thigh, initial encounter; E55.9 Vitamin D deficiency, unspecified; W57.XXXA Bitten or stung by nonvenomous insect and other nonvenomous arthropods, initial encounter; Z68.37 Body mass index [BMI] 37.0-37.9, adult; Z81.8 Family history of other mental and behavioral disorders; Y93.89 Activity, other specified; Y92.89 Other specified places as the place of occurrence of the external cause; Y99.8 Other external cause status
CPT/HCPCS: 36415; 71045; 71275; 73700; 80048; 80053; 80061; 80202; 80307; 81001; 82306; 82607; 82962; 83036; 83605; 83735; 83880; 84439; 84443; 84481; 84484; 85007; 85025; 85027; 85379; 85610; 85652; 85730; 86141; 86800; 87040; 87070; 87075; 87077; 87086; 87088; 87186; 87205; 87426; 93005; 93971; 97163; G0378; J0692; J0696; J1450; J1815; J2185; J2250; J2405; J2543; J2704; J3490; J7060; Q0162

== ENCOUNTER 2023-12-27 09:58 | Emergency (ER) | payer MEDICAID ==
[~2023-12-27] VITALS: Ht 167.6 cm; Wt 113.8 kg
[~2023-12-27 09:58] MED LIST: ALPR0.254 PO; AUG875T PO; CHOL1CAP47 PO; DOXY1CAP57 PO; ESCI10TA PO; GLIP10TA9 PO; HYDR-4902 PO; LEVO75TA6 PO; METF-370 PO; METO25TA5 PO; NYST150P2 XX; PREG25CA PO
[2023-12-27] MEDS ORDERED: IBUP1TAB5 PO (12:48)
[2023-12-27] MEDS ORDERED: BACDST PO (12:48)
[2023-12-27 13:00] VITALS: BP 138/72; PULSE 95; RESP 18; TEMP 98; O2SAT 95
[2023-12-27] MEDS: cefTRIAXone SOD 1,000 MG VL IM ONE (13:17)
== END 2023-12-27 13:26 | disposition home or self-care (01) ==
LOC: ER 09:58
DX: A46 Erysipelas (principal); F41.9 Anxiety disorder, unspecified
CPT/HCPCS: 96372; 99283; J0696

== ENCOUNTER 2025-08-09 16:18 | Emergency (ER) | payer MEDICAID ==
[~2025-08-09] VITALS: Ht 167.6 cm; Wt 107.8 kg
[~2025-08-09 16:18] MED LIST changes: +BACDST PO; +IBUP1TAB5 PO
--- NOTE | 2025-08-09 16:39 | ECG ---
[facility] Test Date: 2025-08-09 Test Time: 16:27:38 Pat Name: LINDA TUCKER Department: Room: Gender: F Cork Wirer: : 1970 Requested By: CHARLY CHANEY* Order Number: [id number] Reading MD: Jack Davis Measurements Intervals [place] Rate: 86 P: 50 IN: 152 QRS: 9 QRSD: 86 T: 47 QT: 364 QTc: 436 Interpretive Statements Sinus rhythm Electronically Signed On 08-09-2025 17:09:04 PST by Jack Davis Please click the below link to view image of tracing.
--- NOTE | 2025-08-09 16:52 | ED.PDOC ---
HPI (NEURO) HPI Comments This is a 54 year old female presenting to the ED with chief complaint of generalized weakness. Patient reports that she has been experiencing generalized weakness with associated fatigue, ringing of the ears, right eye blurred vision, right facial tingling, and a posterior headache for the past 2 weeks. Patient relays that she has been under a lot of undue stress recently and has history of anxiety, on medication for it. Patient denies any chest pain, SOB, dizziness, worsening headache, or syncope. Chief Complaint: General Weakness Time Seen by MD: 16:48 Primary Care Provider: [email or web address] Reviewed Notes: Nurses Notes, Medications, Allergies Information Source: Patient Mode of Arrival: Ambulatory Severity: Moderate Headache Severity: Moderate Timing: Weeks Duration: Since onset Prehospital treatment: None Headache Quality: Aching Headache Location: Occipital Numbness Location: Facial Onset: At rest Circumstances: Recent stress Symptoms: Change of vision Past Medical History PAST MEDICAL HISTORY: Anxiety, DM, High Lipids, HTN, Thyroid Past Medical History (Other): Neuropathy Surgical History (Other): Partial Thyroidectomy ADMINISTRATION ASSISTANT History: No Pertinent ADMINISTRATION ASSISTANT History Family History Family History: Reviewed,noncontributory to illness, Unknown Social History Smoker: Non-Smoker Alcohol: Denies ETOH Use Drugs: Denies Drug Use Lives In: Home Constitutional: reports: fatigue; denies: chills, diaphoresis, fever, malaise, sweats, weakness, others EENTM: reports: blurred vision, ear ringing; denies: double vision, ear ble eding, ear discharge, ear drainage, ear pain, eye pain, eye redness, hearing loss, mouth pain, mouth swelling, nasal discharge, nose bleeding, nose congestion, nose pain, photophobia, tearing, throat pain, throat swelling, voice changes, others Respiratory: denies: cough, hemoptysis, orthopnea, SOB at rest, shortness of breath, SOB with excertion, stridor, wheezing, others Cardiovascular: denies: chest pain, dizzy spells, diaphoresis, Dyspnea on exertion, edema, irregular heart beat, left arm pain, lightheadedness, palpitations, PND, syncope, others Gastrointestinal: denies: abdomen distended, abdominal pain, blood streaked bowels, constipated, diarrhea, dysphagia, difficulty swallowing, hematemesis, melena, nausea, poor appetite, poor fluid intake, rectal bleeding, rectal pain, vomiting, others Genitourinary: denies: abnormal vagina bleeding, burning, dyspareunia, dysuria, flank pain, frequency, hematuria, incontinence, pain, , vagina discharge, urgency, others Neurological: reports: headache, tingling; denies: dizziness, fainting, left sided numbness, left sided weakness, numbness, paresthesia, pre-existing deficit, right sided numbness, right sided weakness, seizure, speech problems, tremors, weakness, others Musculoskeletal: reports: neck pain; denies: back pain, gout, joint pain, joint swelling, muscle pain, muscle stiffness, others Integumetry: denies: bruises, change in color, change in hair/nails, dryness, l aceration, lesions, lumps, rash, wounds, others Allergic/Immunocompromised: denies: Difficulty Healing, Frequent Infections, Hives, Itching, others Hematologic/Lymphatic: denies: anemia, blood clots, easy bleeding, easy bruising, swollen glands, others Endocrine: denies: excessive hunger, excessive sweating, excessive thirst, excessive urination, flushing, intolerance to cold, intolerance to heat, unexplained weight gain, unexplained weight loss, others Psychiatric: denies: anxiety, bipolar disorder, depression, hopeless, panic disorder, schizophrenia, sleepless, suicidal, others All Other Systems: Reviewed and Negative Physical Exam General Appearance: No Apparent Distress, Normal HEENT: Normal ENT Inspection, Pharynx Normal, TMs Normal Neck: Full Range of Motion, Non-Tender, Normal, Normal Inspection Respiratory: Chest Non-Tender, Lungs Clear, No Accessory Muscle Use, No Respiratory Distress, Normal Breath Sounds Cardiovascular: No Edema, No JVD, No Murmur, No Gallop, Normal Peripheral Pulses, Regular Rate/Rhythm Breast Exam: Deferred Gastrointestinal: No Organomegaly, Non Tender, No Pulsatile Mass, Normal Bowel Sounds, Soft Genitalia: Deferred Pelvic: Deferred Rectal: Deferred Extremities: No calf tenderness, Normal capillary refill, Normal inspection, Normal range of motion, Non-tender, No pedal edema Musculoskeletal : Location: Bilateral Apperance: Normal, Tenderness (Bilateral trapezius muscle tenderness) Neurologic: Alert, licensed electrician II-XII nml as Tested, No Motor Deficits, Normal Affect, Normal Mood, No Sensory Deficits Cerebellar Function: Normal Reflexes: Normal Skin: Dry, Normal Color, Warm Lymphatic: No Adenopathy Was a procedure done? Was a procedure done?: No Differential Diagnosis (SZ) Seizure: N/A General Weakness: Anemia, CVA, Dehydration, Labyrinthitis, Meniere's disease X-Ray, Labs, Meds, VS Vital Signs Date Time Temp Pulse Resp B/P (MAP) Pulse Ox O2 Delivery O2 Flow Rate FiO2 08/09/25 19:45 98.5 84 16 132/77 (95) 98 98.5 08/09/25 16:27 86 08/09/25 16:20 97.8 91 18 137/72 98 97.8 Lab Test 08/09/25 20:28 08/09/25 17:43 08/09/25 16:50 Range/Units Urine Color Light-yellow Yellow Urine Clarity Clear Clear Urine pH 5.5 5.0-9.0 Urine Specific [place] 1.017 1.001-1.035 Urine Protein Negative Negative Urine Ketones Negative Negative Urine Blood Negative Negative /uL Urine Nitrite Negative Negative Urine Bilirubin Negative Negative Urine Urobilinogen Normal Negative mg/dL Urine Leukocyte Esterase Trace Negative /uL Urine RBC 1 0 - 4 /hpf Urine Microscopic WBC 1 0-5 /HPF Urine Squamous Epithelial Cells Few <5 /hpf Urine Bacteria Few H None Seen /hpf Urine Mucus Few None Seen Urine Yeast (Budding) Occasional None Seen /hpf Urine Glucose Normal Normal mg/dL Troponin I High Sensitivity < 3 L < 3 L </=34 ng/L White Blood Count 9.8 4.4-10.8 10^3/uL Red Blood Count 5.04 4.0-5.20 10^6/uL Hemoglobin 13.6 12.2-16.2 g/dL Hematocrit 41.3 36.0-46.0 % Mean Corpuscular Volume 81.9 80.0-100.0 fL Mean Corpuscular Hemoglobin 27.1 L 28.0-32.0 pg Mean Corpuscular Hemoglobin Concent 33.0 32.0-36.0 g/dL Red Cell Distribution Width 14.1 11.8-14.3 % Platelet Count 322 140-450 10^3/uL Mean Platelet Volume 8.4 6.9-10.8 fL Neutrophils (%) (Auto) 61.1 37.0-80.0 % Lymphocytes (%) (Auto) 30.5 10.0-50.0 % Monocytes (%) (Auto) 6.2 0.0-12.0 % Eosinophils (%) (Auto) 1.5 0.0-7.0 % Basophils (%) (Auto) 0.7 0.0-2.0 % Neutrophils # (Auto) 6.0 1.6-8.6 10 ^3/uL Lymphocytes # (Auto) 3.0 0.4-5.4 10 ^3/uL Monocytes # (Auto) 0.6 0-1.3 10 ^3/uL Eosinophils # (Auto) 0.1 0-0.8 10 ^3/uL Basophils # (Auto) 0.1 0-0.2 10 ^3/uL Nucleated Red Blood Cells 0.1 % Sodium Level 140 136-145 mmol/L Potassium Level 4.3 3.5-5.1 mmol/L Chloride Level 103 98-107 mmol/L Carbon Dioxide Level 29 20-31 mmol/L Anion Gap 8 5-15 Blood Urea Nitrogen 15 9-23 mg/dL Creatinine 1.14 H 0.550-1.02 mg/dL Glomerular Filtration Rate Calc 58 >90 mL/min BUN/Creatinine Ratio 13.2 10.0-20.0 Serum Glucose 140 H 74-106 mg/dL Calcium Level 9.4 8.7-10.4 mg/dL X-Ray, Labs, Meds, VS Comment IMAGING WAS REVIEWED BY THIS PROVIDER, THERE IS NO OBVIOUS PATHOLOGICAL OR ACUTE DISEASE PROCESS. PENDING RADIOLOGY REVIEW LABS WERE REVIEWED BY THIS PROVIDER, NO ABNORMALITIES VITAL SIGNS REVIEWED BY THIS PROVIDER, CLINICALLY STABLE Time of 1ST Reevaluation: 17:46 Reevaluation 1ST: Unchanged Patient Education/Counseling: Diagnosis, Treatment, Need For Follow Up (FOLLOW UP WITH PCP IN THE NEXT 2-3 DAYS. RETURN TO THE EMERGENCY DEPARTMENT IF SYMPTOMS WORSEN.) Family Education/Counseling: No Family Present Departure 1 Departure Time of Disposition: 21:38 Impression: Primary Impression: Chest pain, unspecified Qualified Codes: R07.89 - Other chest pain Additional Impression: Stress Disposition: 01 HOME / SELF CARE / HOMELESS Condition: Stable Discharged With: Self Critical Care Note Critical Care Time?: No Stability Stability form required: No Heart Score Heart Score: Heart Score Response (Comments) Value History N/A 0 EKG N/A 0 Age N/A 0 Risk Factors N/A 0 Troponin N/A 0 Total 0 I personally scribed for CHARLY KNUTSON ([email or web address]) on 08/09/25 at 16:52. Electronically submitted by Jose Randall ([email or web address]). CHARLY KNUTSON Aug 09, 2025 16:52
[2025-08-09 17:02] LABS: Hematocrit 41.3 % (36.0-46.0); Hemoglobin 13.6 g/dL (12.2-16.2); Mean Corpuscular Hemoglobin 27.1 pg (28.0-32.0); Mean Corpuscular Volume 81.9 fL (80.0-100.0); Nucleated Red Blood Cells % 0.1 %
[2025-08-09 17:13] LABS: Chloride 103 mmol/L (98-107); Potassium 4.3 mmol/L (3.5-5.1); Sodium 140 mmol/L (136-145)
[2025-08-09 17:14] LABS: Anion Gap 8 (5-15); Calcium 9.4 mg/dL (8.7-10.4); Carbon Dioxide 29 mmol/L (20-31)
[2025-08-09 17:19] LABS: BUN/Creatinine Ratio 13.2 (10.0-20.0); Blood Urea Nitrogen 15 mg/dL (9-23)
[2025-08-09 17:20] LABS: Glucose 140 mg/dL (74-106)
--- NOTE | 2025-08-09 21:12 | DVH ---
CLINICAL HISTORY: du TECHNIQUE: Helical scanning was performed of the head from the skull base to the vertex. Multiplanar reconstructions were performed. This exam was performed according to our departmental dose optimization program. Up-to-date CT equipment and radiation dose reduction techniques are utilized as appropriate. WID: COMPARISON: None FINDINGS: There is no acute intracranial hemorrhage, CT evidence of acute ischemic changes, mass effect, midline shift, or extra-axial fluid collection. Ventricles are within normal limits The imaged intraorbital structures are unremarkable The imaged paranasal sinuses are clear. The mastoid air cells are clear. The calvarium is intact. IMPRESSION: NO ACUTE INTRACRANIAL FINDINGS
[2025-08-09 21:21] LABS: Urine Budding Yeast OCCASIONAL /hpf (None Seen); Urine Protein, UAD Negative (Negative)
[2025-08-09 22:01] VITALS: BP 139/72; PULSE 87; RESP 16; TEMP 98.5
[2025-08-09 22:03] VITALS: O2SAT 98
== END 2025-08-09 22:03 | disposition home or self-care (01) ==
LOC: ER 16:18
DX: R07.89 Other chest pain (principal); F43.9 Reaction to severe stress, unspecified; H53.8 Other visual disturbances; R51.9 Headache, unspecified; I10 Essential (primary) hypertension; E11.9 Type 2 diabetes mellitus without complications; E78.5 Hyperlipidemia, unspecified; F41.9 Anxiety disorder, unspecified; Z98.890 Other specified postprocedural states
CPT/HCPCS: 36415; 70450; 80048; 81001; 84484; 85025; 93005